=== PATIENT | female | born 1940 | race Hispanic/Latino ===

== ENCOUNTER 2018-06-24 12:16 | Outpatient (CLI) | payer MEDICARE | END 2018-06-24 12:17 | disposition home or self-care (01) | LOC: CARDIO 12:16 | DX: R06.02 Shortness of breath (principal); I27.0 Primary pulmonary hypertension ==

== ENCOUNTER 2018-08-17 09:21 | Outpatient (CLI) | payer MEDICARE | END 2018-08-17 09:22 | disposition home or self-care (01) | LOC: RAD 09:21 ==